=== PATIENT | female | born 1985 | race African-American/Black ===

== ENCOUNTER 2023-09-17 21:26 | Emergency (ER) | payer OTHER ==
[2023-09-17 21:34] VITALS: BP 156/66; PULSE 96; RESP 20; TEMP 98.3; BMI 33.6
== END 2023-09-17 23:37 | disposition home or self-care (01) ==
LOC: JER 21:26
DX: N64.4 Mastodynia (principal); M54.9 Dorsalgia, unspecified; R00.0 Tachycardia, unspecified
CPT/HCPCS: 99282-25